=== PATIENT | male | born 1935 | race Caucasian/White ===

== ENCOUNTER 2017-09-27 18:40 | Emergency (ER) | payer MEDICARE, OTHER ==
[2017-09-27 19:22] LABS: BASO % 0.4 % (0.0-1.0); EOS # 0.3 10^3/uL (0.0-0.50); EOS % 2.8 % (0.0-3.0); HEMATOCRIT 45.8 % (42.0-52.0); HEMOGLOBIN 15.9 g/dl (14.0-18.0); IMMATURE GRANULOCYTE % 0.3 % (0-3.0); LYMPH # 2.9 10^3/uL (1.5-4.5); LYMPH % 31.1 % (24.0-44.0); MEAN CORPUSCULAR HEMOGLOBIN 32.4 pg (27.0-33.0); MEAN CORPUSCULAR HGB CONC 34.7 g/dl (32.0-36.5); MEAN CORPUSCULAR VOLUME 93.5 fl (80.0-96.0); MONO # 0.9 10^3/uL (0.0-0.8); MONO % 10.1 % (0.0-5.0); NEUTROPHILS # 5.1 10^3/uL (1.8-7.7); NEUTROPHILS % 55.3 % (36.0-66.0); PLATELET COUNT, AUTOMATED 228 10^3/uL (150-450); RED CELL DISTRIBUTION WIDTH 12.3 % (11.5-14.5); WHITE BLOOD COUNT 9.3 10^3/uL (4.0-10.0)
[2017-09-27 19:32] LABS: INR 0.97; PROTHROMBIN TIME 12.9 SECONDS (12.4-14.5)
[2017-09-27 19:33] LABS: PARTIAL THROMBOPLASTIN TIME 29.4 SECONDS (26.8-37.9)
[2017-09-27 19:49] LABS: ALBUMIN 3.9 GM/DL (3.2-5.2); ALBUMIN/GLOBULIN RATIO 1.15 (1.00-1.93); ALKALINE PHOSPHATASE 117 U/L (45-117); ALT/SGPT 17 U/L (12-78); ANION GAP 7 MEQ/L (8-16); AST/SGOT 26 U/L (7-37); BILIRUBIN,DIRECT 0.1 MG/DL (0.0-0.2); BILIRUBIN,TOTAL 0.5 MG/DL (0.2-1.0); BLOOD UREA NITROGEN 23 MG/DL (7-18); CARBON DIOXIDE LEVEL 32 MEQ/L (21-32); CHLORIDE LEVEL 100 MEQ/L (98-107); CK-MB VALUE MASS 2.5 NG/ML (0.0-3.6); CPK CREATINE PHOSPHOKINASE 158 U/L (39-308); CREATININE FOR GFR 1.25 MG/DL (0.70-1.30); GLOMERULAR FILTRATION RATE 59.3 (>42); GLUCOSE, FASTING 124 MG/DL (70-100); LIPASE 178 U/L (73-393); MB/CK RELATIVE INDEX 1.58 (< OR =4); POTASSIUM SERUM 3.6 MEQ/L (3.5-5.1); SODIUM LEVEL 139 MEQ/L (136-145); TOTAL PROTEIN 7.3 GM/DL (6.4-8.2); TROPONIN I < 0.02 NG/ML (< 0.10)
[2017-09-27] MEDS ORDERED: ISOVUE-370 76% 100ML VIAL (Q9967) As Ordered (20:29)
[2017-09-27] MEDS: ASPIRIN 325 MG TAB PO (20:37)
[2017-09-27] MEDS: MORPHINE 2 MG/ML 1ML SYRINGE (J2270) IV (20:38)
[2017-09-27] MEDS: NS 1,000 ML IV (20:39)
[2017-09-27 23:48] LABS: CK-MB VALUE MASS 2.3 NG/ML (0.0-3.6); CPK CREATINE PHOSPHOKINASE 131 U/L (39-308); MB/CK RELATIVE INDEX 1.75 (< OR =4); TROPONIN I < 0.02 NG/ML (< 0.10)
== END 2017-09-28 00:39 | disposition home or self-care (01) ==
LOC: M ED 09-28 00:39
DX: R07.89 Other chest pain (principal); I10 Essential (primary) hypertension; E78.5 Hyperlipidemia, unspecified; I48.0 Paroxysmal atrial fibrillation; R01.1 Cardiac murmur, unspecified; Z79.899 Other long term (current) drug therapy; Z88.0 Allergy status to penicillin
CPT/HCPCS: Q9967